=== PATIENT | female | born 1960 | race Caucasian/White ===

== ENCOUNTER 2018-01-27 13:59 | Emergency (ER) | payer OTHER, SELFPAY ==
[2018-01-27 14:09] VITALS: BP 160/79; PULSE 101; RESP 15; TEMP 36.5; O2SAT 95; BMI 34.9
--- NOTE | 2018-01-27 14:09 | ED_ITS ---
HPI - Headache <Sandra Ambrocio PA-C - Last Filed: 01/27/18 21:39> General Chief Complaint: Headache Stated Complaint: MIGRAINE Time Seen by Provider: 01/27/18 14:02 Source: patient and family Mode of arrival: ambulatory Limitations: no limitations History of Present Illness HPI Narrative: This 57-year-old female comes to the ED today due to migraine headache. She has a long history of migraines. She states that this feels like a typical bad migraine to her. She woke up with it this morning, which is a typical pattern. She feels the pain around her left eye, which is also typical. She does not get any visual scotoma or other prodrome of symptoms, typically has onset of headache along with nausea and vomiting as well as light sensitivity which she has now. She has vomited 5 times today. Her states that he gave her Imitrex injection and promethazine suppository this morning, but forgot to give Benadryl as well. She will usually go back to sleep and often that combination will help but has not today. She started vomiting and not able to keep down Benadryl. She denies any vision change, difficulty with speech or swallowing, focal weakness. She denies chest pain, dyspnea, abdominal pain or other new symptoms today and feels like this is her typical migraine. She states that she does use Zofran at home and often times that helps with Benadryl. She states that sometimes Toradol helps her. Last time she was here a couple of years ago morphine helped her but made her feel uncomfortable and anxious Related Data Home Medications Medication Instructions Recorded Confirmed multivitamin 1 tab PO DAILY #0 04/27/12 01/27/18 Probiotic 1 cap PO DAILY #0 02/17/16 01/27/18 carvedilol 25 mg PO BID 01/27/18 01/27/18 furosemide 80 mg PO QAM 01/27/18 01/27/18 lorazepam 0.5 mg PO BID 01/27/18 01/27/18 losartan 50 mg PO DAILY 01/27/18 01/27/18 nitroglycerin 0.4 mg SUBLINGUAL PRN PRN 01/27/18 01/27/18 potassium chloride 40 meq PO DAILY 01/27/18 01/27/18 venlafaxine 1 cap PO DAILY 01/27/18 01/27/18 zonisamide 50 mg PO BID 01/27/18 01/27/18 Allergies Allergy/AdvReac Type Severity Reaction Status Date / Time acetaminophen [From VICODIN] Allergy Intermediate Verified 01/27/18 14:09 hydrocodone [From VICODIN] Allergy Intermediate Verified 01/27/18 14:09 lisinopril [LISINOPRIL] Allergy Unknown COUGHT Verified 01/27/18 14:09 Review of Systems <Sandra Ambrocio PA-C - Last Filed: 01/27/18 21:39> Review of Systems All systems reviewed & are unremarkable except as noted in HPI and below Exam <Sandra Ambrocio PA-C - Last Filed: 01/27/18 21:39> Narrative Exam Narrative: GENERAL APPEARANCE: Patient resting comfortably in darkened room , in no distress. HEENT: PERRL, EOMI, normal TMs and oropharynx, no sinus TTP NECK: Supple LUNGS: Clear to auscultation bilaterally. HEART: Rate and rhythm regular without murmur, normal S1 and S2, no S3 or S4. ABDOMEN: Soft, NT, ND, + BS x 4 quadrants NEUROLOGIC: Alert and oriented, normal speech, and coordination. MUSCULOSKELETAL: Full Csp AROM Initial Vital Signs Initial Vital Signs: Vital Signs Temperature 97.7 F 01/27/18 14:09 Pulse Rate 101 H 01/27/18 14:09 Respiratory Rate 15 01/27/18 14:09 Blood Pressure 160/79 H 01/27/18 14:09 Pulse Oximetry 95 01/27/18 14:09 <Thomas Marte DO - Last Filed: 01/28/18 07:08> Initial Vital Signs Initial Vital Signs: Vital Signs Temperature 97.7 F 01/27/18 14:09 Pulse Rate 101 H 01/27/18 14:09 Respiratory Rate 15 01/27/18 14:09 Blood Pressure 160/79 H 01/27/18 14:09 Pulse Oximetry 95 01/27/18 14:09 Course <SOPHIE Flores Last Filed: 01/27/18 21:39> Additional Information: Patient was resting comfortably prior to discharge, reported feeling much improved after medications, did not have recurrent vomiting and pain was much better. She felt like she would continue to improve resting comfortably at home, agree to return if acutely worsening symptoms again Orders Ordered: Discontinued Medications Diphenhydramine HCl (Benadryl) 25 mg IV NOW ONE Stop: 01/27/18 14:18 Last Admin: 01/27/18 14:22 Dose: 25 mg Sodium Chloride (Normal Saline 0.9%) 1,000 mls @ 1,000 mls/hr IV BOLUS ONE Stop: 01/27/18 15:16 Last Infusion: 01/27/18 15:10 Dose: 0 mls/hr Admin: 01/27/18 14:22 Dose: 1,000 mls/hr Ketorolac Tromethamine (Toradol) 30 mg IV NOW ONE Stop: 01/27/18 14:18 Last Admin: 01/27/18 14:23 Dose: 30 mg Ondansetron HCl (Zofran) 4 mg IV NOW ONE Stop: 01/27/18 14:18 Last Admin: 01/27/18 14:23 Dose: 4 mg Vital Signs - 8 hr 01/27/18 14:09 01/27/18 15:48 Temperature 97.7 F Pulse Rate 101 H 80 Respiratory Rate 15 20 Blood Pressure 160/79 H 148/73 H Pulse Oximetry 95 94 <Thomas Marte DO - Last Filed: 01/28/18 07:08> Orders Ordered: Discontinued Medications Diphenhydramine HCl (Benadryl) 25 mg IV NOW ONE Stop: 01/27/18 14:18 Last Admin: 01/27/18 14:22 Dose: 25 mg Sodium Chloride (Normal Saline 0.9%) 1,000 mls @ 1,000 mls/hr IV BOLUS ONE Stop: 01/27/18 15:16 Last Infusion: 01/27/18 15:10 Dose: 0 mls/hr Admin: 01/27/18 14:22 Dose: 1,000 mls/hr Ketorolac Tromethamine (Toradol) 30 mg IV NOW ONE Stop: 01/27/18 14:18 Last Admin: 01/27/18 14:23 Dose: 30 mg Ondansetron HCl (Zofran) 4 mg IV NOW ONE Stop: 01/27/18 14:18 Last Admin: 01/27/18 14:23 Dose: 4 mg Vital Signs - 8 hr 01/27/18 14:09 01/27/18 15:48 Temperature 97.7 F Pulse Rate 101 H 80 Respiratory Rate 15 20 Blood Pressure 160/79 H 148/73 H Pulse Oximetry 95 94 Discharge Plan Departure Patient Disposition: Home, Self-Care Clinical Impression: Migraine Discharge Date/Time: 01/27/18 15:49 Interventions: ED Discharge Assessment Last Done: 01/27/18 15:48 Instructions: DI for Migraine Activity Restrictions/Additional Instructions: You should return if you have new or acutely worsening symptoms again. Otherwise, please rest in a dark, quiet place today and continue your usual medications. Please try to eat small amounts of bland food every couple of hours to help with nausea and drink clear fluids. Prescriptions: No Action multivitamin Tablet 1 tab PO DAILY Qty: 0 RF: 0 Probiotic 1 cap PO DAILY Qty: 0 RF: 0 losartan 50 mg tablet 50 mg PO DAILY RF: 0 furosemide 40 mg tablet 80 mg PO QAM RF: 0 carvedilol 25 mg tablet 25 mg PO BID RF: 0 venlafaxine 150 mg capsule,extended release 24hr 1 cap PO DAILY RF: 0 potassium chloride 20 mEq tablet,ER particles/crystals 40 meq PO DAILY RF: 0 lorazepam 0.5 mg tablet 0.5 mg PO BID RF: 0 nitroglycerin 0.4 mg tablet, sublingual 0.4 mg Sublingual PRN PRN (Reason: Chest Pain) RF: 0 zonisamide 50 mg capsule 50 mg PO BID RF: 0 Referrals: Corina Mena DO [Primary Care Provider] - Can Aranda MD [Non-Staff] - <Thomas Marte DO - Last Filed: 01/28/18 07:08> Cosign ED Attending Norman Attestation: I was available for consultation during this patient's emergency department encounter
[2018-01-27] MEDS: diphenhydrAMINE 50 MG/ML VIAL 25 MG IV (14:22)
[2018-01-27] MEDS: SODIUM CHLORIDE 0.9% 1,000 ML 1000 ML IV (14:22)
[2018-01-27] MEDS: KETOROLAC 60 MG/2 ML VIAL 30 MG IV (14:23)
[2018-01-27] MEDS: ONDANSETRON 4 MG/2 ML INJ IV (14:23)
--- NOTE | 2018-01-27 14:26 | PC.NURSE ---
Room is darkened. IV start and meds after provider exam
[2018-01-27 15:48] VITALS: BP 148/73; PULSE 80; RESP 20; O2SAT 94
== END 2018-01-27 15:49 | disposition home or self-care (01) ==
PROVIDERS: Emergency Provider Internal Medicine; Family Provider Family Medicine; PCP Family Medicine
DX: G43.909 Migraine, unspecified, not intractable, without status migrainosus (principal)
CPT/HCPCS: 96361; 96374; 96375; 99283; 99284; J1200; J1885; J2405

== ENCOUNTER 2018-03-17 12:54 | Emergency (ER) | payer OTHER, SELFPAY ==
[2018-03-17 13:03] VITALS: BP 146/101; PULSE 84; RESP 18; TEMP 36.4; O2SAT 97; BMI 38.0
--- NOTE | 2018-03-17 15:25 | ED_ITS ---
HPI - Headache <RODNEY Buck - Last Filed: 03/17/18 17:49> General Chief Complaint: Headache Stated Complaint: HEADACHE FOR 3 DAYS Time Seen by Provider: 03/17/18 14:44 History of Present Illness HPI Narrative: Patient presents with chief complaint of migraine for 3 days. She states she usually gets migraines. She took 1 Toradol yesterday for it. Her prescription is to take it every 6 hr as needed for headache. She complains of nausea and vomiting yesterday. She complains of some sensitivity to light and she complains of no sensitivity to noise. She denies confusion, thunderclap sensation, aura. She states she wakes up with headaches. She states this is her usual migraine for her. She states she has had migraines that are much worse beforehand. She denies any headache, urinary complaints, chest pain, shortness of breath, cough, congestion, sore throat or ear pain. Patient denies any trauma. Related Data Home Medications Medication Instructions Recorded Confirmed multivitamin 1 tab PO DAILY #0 04/27/12 01/27/18 Probiotic 1 cap PO DAILY #0 02/17/16 01/27/18 carvedilol 25 mg PO BID 01/27/18 01/27/18 furosemide 80 mg PO QAM 01/27/18 01/27/18 lorazepam 0.5 mg PO BID 01/27/18 01/27/18 losartan 50 mg PO DAILY 01/27/18 01/27/18 nitroglycerin 0.4 mg SUBLINGUAL PRN PRN 01/27/18 01/27/18 potassium chloride 40 meq PO DAILY 01/27/18 01/27/18 venlafaxine 1 cap PO DAILY 01/27/18 01/27/18 zonisamide 50 mg PO BID 01/27/18 01/27/18 Allergies Allergy/AdvReac Type Severity Reaction Status Date / Time acetaminophen [From VICODIN] Allergy Intermediate Verified 01/27/18 14:09 hydrocodone [From VICODIN] Allergy Intermediate Verified 01/27/18 14:09 lisinopril [LISINOPRIL] Allergy Unknown COUGHT Verified 01/27/18 14:09 sumatriptan [From Imitrex] Allergy Difficulty Verified 03/17/18 13:07 Breathing Review of Systems <RODNEY Buck - Last Filed: 03/17/18 17:49> Review of Systems GENERAL: See HPI HEENT: Denies sinus pain, ear pain, sore throat, difficulty swallowing, dizziness. RESPIRATORY: Denies dyspnea, cough, wheezing, hemoptysis, sputum. CARDIOVASCULAR: Denies chest pain, palpitations, orthopnea, edema, GASTROINTESTINAL: See HPI : Denies dysuria, frequency, incontinence, hematuria, urinary retention. MUSCULOSKELETAL: denies weakness, joint pain, or bony pain SKIN: Denies rash, skin lesions, or other NEUROLOGIC: See HPI PSYCHIATRIC: No concerning psychosocial issues. 12 point review of systems is negative except for those stated above Exam <Elena Pena [facility]- - Last Filed: 03/17/18 17:49> Narrative Exam Narrative: GENERAL: Obese patient lying on stretcher. HEAD: Atraumatic. Normocephalic. No temporal or scalp tenderness. EYES: Pupils equal round and reactive. Extraocular motions intact. No scleral icterus. No injection or drainage. Accommodation intact. ENT: Nose without bleeding, purulent drainage or septal hematoma. Throat without erythema, tonsillar hypertrophy or exudate. Uvula midline. Airway patent. NECK: Trachea midline. No JVD or lymphadenopathy. Supple, nontender, no meningeal signs. CARDIOVASCULAR: Regular rate and rhythm without murmurs, gallops, or rubs. RESPIRATORY: Clear to auscultation. Breath sounds equal bilaterally. No wheezes , rales, or rhonchi. GASTROINTESTINAL: Abdomen soft, non-tender, nondistended. No hepato-splenomegaly , or palpable masses. No guarding. EXTREMITIES: No clubbing, cyanosis, or edema. No joint tenderness, effusion, or edema noted. BACK: Nontender without deformity or crepitance. No flank tenderness. NEURO: AOx3. No slurred speech. Cranial nerves grossly intact. Strength equal upper and lower extremities bilaterally. Steady gait, follows commands. SKIN: No rash or erythema. Initial Vital Signs Initial Vital Signs: Vital Signs Temperature 97.5 F L 03/17/18 13:03 Pulse Rate 84 03/17/18 13:03 Respiratory Rate 18 03/17/18 13:03 Blood Pressure 146/101 H 03/17/18 13:03 Pulse Oximetry 97 03/17/18 13:03 <Lluvia Mason DO - Last Filed: 03/18/18 14:56> Initial Vital Signs Initial Vital Signs: Vital Signs Temperature 97.5 F L 03/17/18 13:03 Pulse Rate 84 03/17/18 13:03 Respiratory Rate 18 03/17/18 13:03 Blood Pressure 146/101 H 03/17/18 13:03 Pulse Oximetry 97 03/17/18 13:03 Course <RODNEY Buck - Last Filed: 03/17/18 17:49> Orders Ordered: Discontinued Medications Sodium Chloride (Normal Saline 0.9%) 1,000 mls @ 1,000 mls/hr IV BOLUS ONE Stop: 03/17/18 16:23 Last Admin: 03/17/18 15:47 Dose: 1,000 mls/hr Ketorolac Tromethamine (Toradol) 30 mg IV NOW ONE Stop: 03/17/18 15:25 Last Admin: 03/17/18 15:47 Dose: 30 mg Ondansetron HCl (Zofran) 4 mg IV NOW ONE Stop: 03/17/18 15:25 Last Admin: 03/17/18 15:47 Dose: 4 mg Vital Signs - 8 hr 03/17/18 13:03 Temperature 97.5 F L Pulse Rate 84 Respiratory Rate 18 Blood Pressure 146/101 H Pulse Oximetry 97 <Lluvia Mason DO - Last Filed: 03/18/18 14:56> Orders Ordered: Discontinued Medications Sodium Chloride (Normal Saline 0.9%) 1,000 mls @ 1,000 mls/hr IV BOLUS ONE Stop: 03/17/18 16:23 Last Admin: 03/17/18 15:47 Dose: 1,000 mls/hr Ketorolac Tromethamine (Toradol) 30 mg IV NOW ONE Stop: 03/17/18 15:25 Last Admin: 03/17/18 15:47 Dose: 30 mg Ondansetron HCl (Zofran) 4 mg IV NOW ONE Stop: 03/17/18 15:25 Last Admin: 03/17/18 15:47 Dose: 4 mg Vital Signs - 8 hr 03/17/18 13:03 Temperature 97.5 F L Pulse Rate 84 Respiratory Rate 18 Blood Pressure 146/101 H Pulse Oximetry 97 MDM - Headache <RODNEY Buck - Last Filed: 03/17/18 17:49> Differential Diagnosis Differential diagnosis: Likely migraine, tension headache and headache MDM Narrative Medical decision making narrative: Patient presents with chief complaint of headache for 3 days described as a usual migraine for her. Given that she drove herself here, I did not want to give her a medication that was too sedating. Thus I gave her normal saline, Zofran and Toradol. She has used these medications in the past with good effect. I checked on her later and she stated that her headache was much better and she wanted to go home gets rest. Given that she was neurologically intact and that this headache was not as bad as previous, she did not warrant imaging today. She had no questions or concerns upon discharge. Instructed her to follow up with her primary care as well as her neurologist for headache prevention. Discharge Plan Departure Patient Disposition: Home Clinical Impression: Migraine Discharge Date/Time: 03/17/18 16:34 Interventions: ED Discharge Assessment Last Done: 03/17/18 16:33 Instructions: DI for Migraine, DI for Headache Activity Restrictions/Additional Instructions: Please follow-up with her primary care provider as well as her neurologist. Please go home and rest. Rest her brain and push fluids. Monitor for any confusion or neurological concerns. Come back to the emergency department if needed. Prescriptions: No Action multivitamin Tablet 1 tab PO DAILY Qty: 0 RF: 0 Probiotic 1 cap PO DAILY Qty: 0 RF: 0 losartan 50 mg tablet 50 mg PO DAILY RF: 0 furosemide 40 mg tablet 80 mg PO QAM RF: 0 carvedilol 25 mg tablet 25 mg PO BID RF: 0 venlafaxine 150 mg capsule,extended release 24hr 1 cap PO DAILY RF: 0 potassium chloride 20 mEq tablet,ER particles/crystals 40 meq PO DAILY RF: 0 lorazepam 0.5 mg tablet 0.5 mg PO BID RF: 0 nitroglycerin 0.4 mg tablet, sublingual 0.4 mg Sublingual PRN PRN (Reason: Chest Pain) RF: 0 zonisamide 50 mg capsule 50 mg PO BID RF: 0 <Lluvia Mason DO - Last Filed: 03/18/18 14:56> Cosign ED Attending Norman Attestation: I was immediately available in the department for consultation. Documentation has been reviewed. I agree with assessment and plan.
[2018-03-17] MEDS: SODIUM CHLORIDE 0.9% 1,000 ML 1000 ML IV (15:47)
[2018-03-17] MEDS: ONDANSETRON 4 MG/2 ML INJ IV (15:47)
[2018-03-17] MEDS: KETOROLAC 60 MG/2 ML VIAL 30 MG IV (15:47)
== END 2018-03-17 16:34 | disposition home or self-care (01) ==
PROVIDERS: Emergency Provider Nurse Practitioner Family; Family Provider Family Medicine; PCP Family Medicine
DX: G43.909 Migraine, unspecified, not intractable, without status migrainosus (principal)
CPT/HCPCS: 96361; 96374; 96375; 99282; 99284; J1885; J2405